=== PATIENT | female | born 1995 | race Two or more races ===

== ENCOUNTER 2018-07-06 06:52 | Emergency (ER) | payer OTHER ==
[~2018-07-06] VITALS: Ht 154.9 cm; Wt 80.7 kg
[2018-07-06 07:01] VITALS: BP 127/81; Ht 154.9 cm; Wt 80.7 kg
== END 2018-07-06 07:30 | disposition home or self-care (01) ==
LOC: ED 06:52
DX: J06.9 Acute upper respiratory infection, unspecified (principal); H57.89 Other specified disorders of eye and adnexa

== ENCOUNTER 2019-07-07 23:01 | Emergency (ER) | payer OTHER ==
[~2019-07-07] VITALS: Ht 154.9 cm; Wt 79.8 kg
[2019-07-07 23:05] VITALS: BP 150/91; Ht 154.9 cm; Wt 79.8 kg
== END 2019-07-07 23:32 | disposition home or self-care (01) ==
LOC: ED 23:01
DX: K01.1 Impacted teeth (principal)